=== PATIENT | male | born 1985 | race Two or more races ===

== ENCOUNTER 2020-06-29 00:46 | Emergency (ER) | payer BC, OTHER ==
[2020-06-29] MEDS ORDERED: ONDANSETRON 4 MG/2 ML VIAL IVP STA (01:10)
[2020-06-29] MEDS ORDERED: SODIUM CHLORIDE 0.9% 1,000 ML IV STA (01:10)
--- NOTE | 2020-06-29 01:14 | ED ---
SOB HPI - General Chief Complaint: Shortness of Breath Stated Complaint: Covid+ Time Seen by Provider: 06/29/20 00:59 Source: patient, RN notes reviewed Mode of arrival: ambulatory Limitations: no limitations - History of Present Illness Initial Comments: Patient is a 35-year-old male that presents to emergency department Covid- positive increased shortness of breath over the last day. He Covid-positive since Thursday. He stated that scan of the point were he can't afford it anymore. He also noted that he developed some nausea and vomiting. When he can't keep any food or water down. He noted that he hasn't eaten several days is having difficulties getting fluids in. He notes that he feels very dehydrated. He was in minimal distress and breathing rapidly while sitting up in bed during the exam and interview. He denied any chest pain headache diarrhea constipation fever fatigue chills weakness numbness tingling. - Related Data Allergies Allergy/AdvReac Type Severity Reaction Status Date / Time No Known Allergies Allergy Verified 06/29/20 00:53 Review of Systems ROS Statement: Those systems with pertinent positive or pertinent negative responses have been documented in the HPI. ROS Other: All systems not noted in ROS Statement are negative. Past Medical History Past Medical History: No Reported History History of Any Multi-Drug Resistant Organisms: None Reported Past Surgical History: No Surgical Hx Reported Past Psychological History: No Psychological Hx Reported Smoking Status: Never smoker Past Alcohol Use History: None Reported Past Drug Use History: Marijuana General Exam Limitations: no limitations General appearance: alert, in distress (Minimal) Head exam: Present: atraumatic, normocephalic, normal inspection Eye exam: Present: normal appearance, PERRL, EOMI. Absent: scleral icterus, conjunctival injection, periorbital swelling Neck exam: Present: normal inspection. Absent: tenderness, meningismus, lymphadenopathy Respiratory exam: Present: normal lung sounds bilaterally. Absent: respiratory distress, wheezes, rales, rhonchi, stridor Cardiovascular Exam: Present: regular rate, normal rhythm, normal heart sounds. Absent: systolic murmur, diastolic murmur, rubs, gallop, clicks GI/Abdominal exam: Present: soft, normal bowel sounds. Absent: distended, tenderness, guarding, rebound, rigid Extremities exam: Present: normal inspection, full ROM, normal capillary refill. Absent: tenderness, pedal edema, joint swelling, calf tenderness Neurological exam: Present: alert, oriented X3, CN II-XII intact Psychiatric exam: Present: normal affect, normal mood Skin exam: Present: warm, dry, intact, normal color. Absent: rash Course Vital Signs 06/29/20 00:53 Temperature 98 F Pulse Rate 110 H Respiratory 26 H Rate Blood Pressure 133/92 O2 Sat by Pulse 99 Oximetry Medical Decision Making - Medical Decision Making 35-year-old male who is Covid-positive complaining of dyspnea and nausea with some abdominal pain. Basic labs, 1 L normal saline, 4 mg of Zofran, chest x-ray ordered. Labs unremarkable. Chest x-ray shows lobar pneumonia. Case discussed with Dr. Ingram, patient can discharge home with follow-up to primary care. - Lab Data Result diagrams: 06/29/20 01:30 06/29/20 01:30 Lab Results 06/29/20 06/29/20 Range/Units 01:30 01:30 WBC 7.2 (3.8-10.6) k/uL RBC 6.23 H (4.30-5.90) m/uL Hgb 18.6 H (13.0-17.5) gm/dL Hct 52.2 (39.0-53.0) % MCV 83.7 (80.0-100.0) fL MCH 29.9 (25.0-35.0) pg MCHC 35.7 (31.0-37.0) g/dL RDW 12.1 (11.5-15.5) % Plt Count 126 L (150-450) k/uL MPV 9.4 Neutrophils % 73 % Lymphocytes % 16 % Monocytes % 6 % Eosinophils % 1 % Basophils % 2 % Neutrophils # 5.3 (1.3-7.7) k/uL Lymphocytes # 1.2 (1.0-4.8) k/uL Monocytes # 0.4 (0-1.0) k/uL Eosinophils # 0.1 (0-0.7) k/uL Basophils # 0.2 (0-0.2) k/uL Sodium 136 L (137-145) mmol/L Potassium 3.6 (3.5-5.1) mmol/L Chloride 98 (98-107) mmol/L Carbon Dioxide 21 L (22-30) mmol/L Anion Gap 17 mmol/L BUN 19 (9-20) mg/dL Creatinine 1.20 (0.66-1.25) mg/dL Est GFR (CKD-EPI)AfAm >90 (>60 ml/min/1.73 sqM) Est GFR (CKD-EPI)NonAf 79 (>60 ml/min/1.73 sqM) Glucose 122 H (74-99) mg/dL Calcium 9.5 (8.4-10.2) mg/dL Total Bilirubin 0.7 (0.2-1.3) mg/dL AST 47 (17-59) U/L ALT 46 (4-49) U/L Alkaline Phosphatase 69 (38-126) U/L Total Protein 8.7 H (6.3-8.2) g/dL Albumin 5.3 H (3.5-5.0) g/dL - Radiology Data Radiology results: report reviewed, image reviewed Chest x-ray: Lateral left mid lung consolidation consistent with lobar pneumonia. Disposition Clinical Impression: COVID-19, Pneumonia due to COVID-19 virus Disposition: HOME SELF-CARE Condition: Stable Instructions (If sedation given, give patient instructions): Coronavirus Disease 2019 (COVID-19) Additional Instructions: Please return to the Emergency Department if symptoms worsen or any other concerns. Continue conservative management home with lddn-tce-[id number] anti-inflammatories for fever and muscle aches. Follow-up with primary care in 3-5 days. Rest, increase oral fluids, eat foods that are easy stomach to digest. Is patient prescribed a controlled substance at d/c from ED?: Yes When asked, does pt state using other controlled substances?: No If prescribed controlled substance>3 days was MAPS reviewed?: Prescribed <3 Days If opioid is for acute pain is fill amount 7 days or less?: Yes Referrals: None,Stated [Primary Care Provider] - 1-2 days Time of Disposition: 02:30
[2020-06-29 01:43] LABS: Basophils # (A) 0.2 k/uL (0-0.2); Basophils % (A) 2 %; Eosinophils # (A) 0.1 k/uL (0-0.7); Eosinophils % (A) 1 %; HCT 52.2 % (39.0-53.0); HGB 18.6 gm/dL (13.0-17.5); Lymphocytes # (A) 1.2 k/uL (1.0-4.8); Lymphocytes % (A) 16 %; MCH 29.9 pg (25.0-35.0); MCHC 35.7 g/dL (31.0-37.0); MCV 83.7 fL (80.0-100.0); Mean Platelet Volume 9.4; Monocytes # (A) 0.4 k/uL (0-1.0); Monocytes % (A) 6 %; Neutrophils # (A) 5.3 k/uL (1.3-7.7); Neutrophils % (A) 73 %; Platelet Count 126 k/uL (150-450); RBC 6.23 m/uL (4.30-5.90); RDW 12.1 % (11.5-15.5); WBC 7.2 k/uL (3.8-10.6)
[2020-06-29 01:58] LABS: ALT 46 U/L (4-49); AST 47 U/L (17-59); African American GFR (CKD) >90 (>60 ml/min/1.73 sqM); Albumin 5.3 g/dL (3.5-5.0); Alkaline Phosphatase 69 U/L (38-126); Anion Gap 17 mmol/L; Blood Urea Nitrogen 19 mg/dL (9-20); Calcium 9.5 mg/dL (8.4-10.2); Carbon Dioxide 21 mmol/L (22-30); Chloride 98 mmol/L (98-107); Glucose 122 mg/dL (74-99); Non-African American GFR(CKD) 79 (>60 ml/min/1.73 sqM); Potassium 3.6 mmol/L (3.5-5.1); Sodium 136 mmol/L (137-145); Total Bilirubin 0.7 mg/dL (0.2-1.3); Total Protein 8.7 g/dL (6.3-8.2)
--- NOTE | 2020-06-29 01:58 | XR ---
EXAM: XR Chest, 1 View CLINICAL HISTORY: ITS.REASON XR Reason: Dyspnea TECHNIQUE: Frontal view of the chest. COMPARISON: No relevant prior studies available. FINDINGS: Lungs: Consolidation in the lateral left midlung. No consolidation. Pleural space: Unremarkable. No pneumothorax. Heart: Unremarkable. No cardiomegaly. Mediastinum: Unremarkable. Bones/joints: Unremarkable. IMPRESSION: 1. Lateral left mid-lung consolidation consistent with lobar pneumonia. 2. No pleural effusion or pneumothorax.
[2020-06-29] MEDS ORDERED: ACET/COD 300 MG/30 MG STARTER PACK 6 TAB BTL PO STA (02:29)
[2020-06-29] MEDS ORDERED: ONDANSETRON 4 MG ODT STARTER PACK 2 TAB BTL PO STA (02:29)
[2020-06-29 03:32] VITALS: BP 138/70; PULSE 86; RESP 17; TEMP 100.9
== END 2020-06-29 03:32 | disposition home or self-care (01) ==
LOC: EC 00:46
DX: U07.1 COVID-19 (principal); J12.82 Pneumonia due to coronavirus disease 2019
CPT/HCPCS: 36415; 80053; 85025; 71045; 99285; 96374; 96361 ×2; J2405; S0119